=== PATIENT | female | born 1995 | race Caucasian/White ===

== ENCOUNTER 2022-12-12 01:59 | Inpatient (IN) | payer BC ==
[2022-12-12] MEDS ORDERED: Terbutaline 1 MG/ML SDV SUBCUT PRN (21:10)
[2022-12-12] MEDS ORDERED: Lidocaine 1% 50 ML MDV INJECT PRN (21:10)
[2022-12-12] MEDS ORDERED: Tranexamic Acid IN NACL,ISO-OS 1,000 MG in Premix Bag 1 BAG IV PRN ×2 (21:10)
[2022-12-12] MEDS ORDERED: Sodium Chloride 0.9% 10 ML Syringe FLUSH PRN (21:10)
[2022-12-12] MEDS ORDERED: Misoprostol 200 MCG Tab PO PRN (21:10)
[2022-12-12] MEDS ORDERED: Butorphanol 1 MG/ML SDV IVPUSH PRN (21:10)
[2022-12-12] MEDS ORDERED: Sodium Chloride 0.9% 2.5 ML Syringe FLUSH PRN (21:10)
[2022-12-12] MEDS ORDERED: Water For Irrigation,Sterile 1,000 ML Container IRR PRN (21:10)
[2022-12-12] MEDS ORDERED: Carboprost Tromethamine 250 MCG/1 mL Vial IM PRN (21:10)
[2022-12-12] MEDS ORDERED: Sodium Chloride 0.9% 20 ML SDV IV PRN (21:10)
[2022-12-12] MEDS ORDERED: Methylergonovine 0.2 MG/1 ML Amp IM PRN (21:10)
[2022-12-12] MEDS ORDERED: Oxytocin/0.9 % Sodium Chloride 30 UNIT/500 ML BAG IV SCH ×2 (21:15)
[2022-12-12 21:23] LABS: HEMATOCRIT 35.4 % (37.0-47.0); HEMOGLOBIN 11.7 g/dL (12.0-16.0); MEAN CORPUSCULAR HEMOGLOBIN 25.7 pg (28.0-32.0); MEAN CORPUSCULAR HGB CONC 33.1 g/dL (32.0-36.0); MEAN CORPUSCULAR VOLUME 77.8 fL (83.0-99.0); MEAN PLATELET VOLUME 11.9 fL (9.4-12.3); PLATELET COUNT,PLT 185 K/uL (150-400); RED BLOOD CELL COUNT 4.55 M/uL (4.10-5.30); WHITE BLOOD CELL COUNT,WBC 9.95 K/uL (3.9-11.3)
[2022-12-12] MEDS: Lactated Ringers 1,000 ML IV SCH (21:50)
[2022-12-12] MEDS ORDERED: Ropivacaine/PF 400 MG/200 ML PCA ONE (22:17)
[2022-12-12] MEDS ORDERED: Phenylephrine HCl 0.5 MG/5 ML AMP ONE (22:17)
[2022-12-12] MEDS ORDERED: ePHEDrine 50 MG/ML SDV IVPUSH PRN ×2 (22:27)
[2022-12-12] MEDS ORDERED: Phenylephrine HCl 0.5 MG/5 ML AMP IVPUSH PRN (22:27)
[2022-12-12] MEDS ORDERED: Ropivacaine HCl/PF 400 MG in Premix Bag 1 BAG EPIDUR SCH (22:30)
[2022-12-13] MEDS: Lactated Ringers 1,000 ML IV SCH (00:26)
[2022-12-13] MEDS ORDERED: oxyCODONE 5 MG Tab PO PRN (02:20)
[2022-12-13] MEDS ORDERED: Benzocaine/Menthol 20%-0.5% Spray 78 GM Cannister TOP PRN (02:20)
[2022-12-13] MEDS ORDERED: Witch Hazel Medicated Pads 40/Jar TOP PRN (02:20)
[2022-12-13] MEDS ORDERED: Ibuprofen 400 MG Tab PO PRN (02:20)
[2022-12-13] MEDS ORDERED: Docusate Sodium 100 MG Cap PO PRN (02:20)
[2022-12-13] MEDS ORDERED: Bisacodyl 10 MG Supp RECTAL PRN (02:20)
[2022-12-13] MEDS ORDERED: Lanolin 100% Cream 7 GM Tube TOP PRN (02:20)
[2022-12-13] MEDS ORDERED: Acetaminophen 500 MG Tab PO PRN ×2 (02:20)
[2022-12-13] MEDS: Ibuprofen 800 MG Tab PO PRN ×3 (02:52→19:43)
[2022-12-13 03:03] LABS: PH,UMBILICAL ARTERIAL 7.195 (7.18-7.38); PH,UMBILICAL VENOUS 7.249 (7.25-7.45)
[2022-12-13 15:14] LABS: HEMATOCRIT 33.4 % (37.0-47.0); HEMOGLOBIN 11.1 g/dL (12.0-16.0)
== END 2022-12-14 15:05 | disposition home or self-care (01) | DRG 560 ==
LOC: MW.OB 01:59 → OBSVTOIN 12-13 01:59 → MW.OB 12-13 07:40
PROVIDERS: ADMIT Obstetrics & Gynecology; ATTEND Obstetrics & Gynecology
PROC: 10E0XZZ Delivery of Products of Conception, External Approach (ICD-10-PCS; principal; 2022-12-13)
PROC: 3E0R3BZ Introduction of Anesthetic Agent into Spinal Canal, Percutaneous Approach (ICD-10-PCS; 2022-12-13)
PROC: 00HU33Z Insertion of Infusion Device into Spinal Canal, Percutaneous Approach (ICD-10-PCS; 2022-12-13)
PROC: 0KQM0ZZ Repair Perineum Muscle, Open Approach (ICD-10-PCS; 2022-12-13)
PROC: 3E033VJ Introduction of Other Hormone into Peripheral Vein, Percutaneous Approach (ICD-10-PCS; 2022-12-13)
DX: O99.214 Obesity complicating childbirth (principal); Z37.0 Single live birth; O36.63X0 Maternal care for excessive fetal growth, third trimester, not applicable or unspecified; Z3A.39 39 weeks gestation of pregnancy; O99.02 Anemia complicating childbirth; Z86.16 Personal history of COVID-19; Z79.82 Long term (current) use of aspirin; O70.1 Second degree perineal laceration during delivery
CPT/HCPCS: 36415; 51702; 59025; 59409; 82803; 85014; 85018; 85027; 85460; 86592; 86850; 86900; 86901; A9270-GY; J2371; J2590; J2790; J2795; J7120

== ENCOUNTER 2023-02-16 11:04 | Emergency (ER) | payer BC ==
[2023-02-16] MEDS ORDERED: Sodium Chloride 0.9% 1,000 ML IV ONE (11:34)
[2023-02-16 11:42] LABS: BASOPHILS ABSOLUTE AUTO 0.04 K/uL (0.00-0.20); BASOPHILS PERCENT AUTO 0.5 % (0.0-1.0); EOSINOPHILS ABSOLUTE AUTO 0.17 K/uL (0.00-0.45); EOSINOPHILS PERCENT AUTO 2.1 % (0.0-6.0); HEMATOCRIT 41.1 % (37.0-47.0); HEMOGLOBIN 13.3 g/dL (12.0-16.0); IMMATURE GRAN ABSOLUTE AUTO 0.08 K/uL (0.00-0.05); LYMPHOCYTES ABSOLUTE AUTO 2.23 K/uL (1.00-4.80); LYMPHOCYTES PERCENT AUTO 26.9 % (24.0-44.0); MEAN CORPUSCULAR HEMOGLOBIN 26.3 pg (28.0-32.0); MEAN CORPUSCULAR HGB CONC 32.4 g/dL (32.0-36.0); MEAN CORPUSCULAR VOLUME 81.2 fL (83.0-99.0); MEAN PLATELET VOLUME 11.4 fL (9.4-12.3); MONOCYTES ABSOLUTE AUTO 0.29 K/uL (0.00-0.80); MONOCYTES PERCENT AUTO 3.5 % (0.0-8.0); NEUTROPHILS ABSOLUTE AUTO 5.48 K/uL (1.80-7.70); PLATELET COUNT,PLT 256 K/uL (150-400); RED BLOOD CELL COUNT 5.06 M/uL (4.10-5.30); WHITE BLOOD CELL COUNT,WBC 8.29 K/uL (3.9-11.3)
[2023-02-16] MEDS ORDERED: Ketorolac 30 MG/ML SDV IVPUSH ONE (12:01)
[2023-02-16 12:17] LABS: A/G RATIO 0.9 (0.9-1.6); ALBUMIN 3.6 g/dL (3.4-5.0); BILIRUBIN TOTAL 0.3 mg/dL (0.2-1.0); CALCIUM 9.4 mg/dL (8.5-10.1); CARBON DIOXIDE,CO2 28.3 mmol/L (21.0-32.0); CREATININE 0.8 mg/dL (0.6-1.0); EST CRCL DRUG DOSING (CG) 92.53 mL/min; POTASSIUM,K 4.1 mmol/L (3.5-5.1); PROTEIN TOTAL,TP 7.5 g/dL (6.4-8.2)
[2023-02-16 12:17] LABS: APPEARANCE,URINE CLEAR; BILIRUBIN,URINE NEGATIVE (NEGATIVE); GLUCOSE,URINE NEGATIVE (NEGATIVE); KETONES,URINE NEGATIVE (NEGATIVE); LEUKOCYTE ESTERASE,URINE NEGATIVE (NEGATIVE); NITRITE,URINE NEGATIVE (NEGATIVE); OCCULT BLOOD,URINE NEGATIVE (NEGATIVE); PROTEIN,URINE NEGATIVE (NEGATIVE); UROBILINOGEN,URINE 0.2 EU/dL (<2.0)
[2023-02-16 12:19] LABS: COLOR,URINE STRAW
== END 2023-02-16 13:39 | disposition home or self-care (01) ==
LOC: MW.ED 11:04
DX: K52.9 Noninfective gastroenteritis and colitis, unspecified (principal); E11.9 Type 2 diabetes mellitus without complications; Z86.16 Personal history of COVID-19; Z79.899 Other long term (current) drug therapy; Z68.41 Body mass index [BMI] 40.0-44.9, adult
CPT/HCPCS: 36415; 76856; 80053; 81003; 81025; 83690; 85025; 96361; 96374; 99284; J1885; J7030

== ENCOUNTER 2023-07-13 13:51 | Emergency (ER) | payer BC ==
[2023-07-13] MEDS: Albuterol 8 GM Inhaler INH STA (14:47)
[2023-07-13] MEDS: Sodium Chloride 0.9% 1,000 ML IV ONE (14:47)
[2023-07-13 14:50] LABS: BASOPHILS ABSOLUTE AUTO 0.02 K/uL (0.00-0.20); BASOPHILS PERCENT AUTO 0.2 % (0.0-1.0); EOSINOPHILS ABSOLUTE AUTO 0.19 K/uL (0.00-0.45); EOSINOPHILS PERCENT AUTO 2.3 % (0.0-6.0); HEMATOCRIT 36.9 % (37.0-47.0); HEMOGLOBIN 11.6 g/dL (12.0-16.0); IMMATURE GRAN ABSOLUTE AUTO 0.02 K/uL (0.00-0.05); IMMATURE GRAN PERCENT AUTO 0.2 % (0.0-0.4); LYMPHOCYTES ABSOLUTE AUTO 2.08 K/uL (1.00-4.80); LYMPHOCYTES PERCENT AUTO 24.9 % (24.0-44.0); MEAN CORPUSCULAR HEMOGLOBIN 24.6 pg (28.0-32.0); MEAN CORPUSCULAR HGB CONC 31.4 g/dL (32.0-36.0); MEAN CORPUSCULAR VOLUME 78.3 fL (83.0-99.0); MEAN PLATELET VOLUME 11.5 fL (9.4-12.3); MONOCYTES ABSOLUTE AUTO 0.24 K/uL (0.00-0.80); MONOCYTES PERCENT AUTO 2.9 % (0.0-8.0); NEUTROPHILS PERCENT AUTO 69.5 % (41.0-71.0); PLATELET COUNT,PLT 251 K/uL (150-400); RED BLOOD CELL COUNT 4.71 M/uL (4.10-5.30); WHITE BLOOD CELL COUNT,WBC 8.35 K/uL (3.9-11.3)
[2023-07-13 15:16] LABS: A/G RATIO 0.9 (0.9-1.6); ALANINE AMINOTRANSFERASE,ALT 31 IU/L (14-63); ALBUMIN 3.3 g/dL (3.4-5.0); ALKALINE PHOSPHATASE 119 U/L (46-116); ASPARTATE AMNIOTRANSFERASE,AST 16 IU/L (15-37); BILIRUBIN TOTAL 0.2 mg/dL (0.2-1.0); BLOOD UREA NITROGEN,BUN 11 mg/dL (7.0-18.0); CALCIUM 8.3 mg/dL (8.5-10.1); CHLORIDE,CL 104 mmol/L (98-107); EST CRCL DRUG DOSING (CG) 74.02 mL/min; GLUCOSE RANDOM 96 mg/dL (74-106); POTASSIUM,K 3.6 mmol/L (3.5-5.1); SODIUM,NA 141 mmol/L (136-145)
[2023-07-13 15:19] LABS: ESTIMATED GFR 78 mL/min (>60)
[2023-07-13 15:29] LABS: CORONAVIRUS COVID-19 NAA NEGATIVE (NEGATIVE); INFLUENZA A NAA NEGATIVE (NEGATIVE); INFLUENZA B NAA NEGATIVE (NEGATIVE); RESPIRATORY SYNCYTIAL VIR NAA NEGATIVE (NEGATIVE)
== END 2023-07-13 15:54 | disposition home or self-care (01) ==
LOC: MW.ED 13:51
DX: R21 Rash and other nonspecific skin eruption (principal); Z75.8 Other problems related to medical facilities and other health care; Z79.51 Long term (current) use of inhaled steroids; Z86.16 Personal history of COVID-19; Z76.0 Encounter for issue of repeat prescription
CPT/HCPCS: 0241U; 36415; 71045; 80053; 84484; 85025; 93005; 96360; 99285; A9270; J7030; 93010; 99283